=== PATIENT | female | born 1980 | race Caucasian/White ===

== ENCOUNTER 2020-07-10 22:31 | Inpatient (IN) | payer BC, SELFPAY ==
--- NOTE | 2020-07-10 22:31 | LDADM ---
This patient, Smita Breaux, was admitted to Labor/Delivery/Recovery 103 on 07/10/20 at 22:31. Plans for labor, pain management and were discussed with patient. Patient/family oriented to hospital policies and general routines including ID bracelet, bed and alarms, visiting hours, pain management, procedures, bathroom and other care routines, personal items, smoking policy, room service/diet and guest tray routines, infant security routines, and visiting hours. Patient/Family are encouraged to report perceived risks to care and to ask questions if they do not understand what they are told or what they should do. See OBIX for further documentation.
[2020-07-10 23:01] VITALS: BP 132/85; PULSE 93
[2020-07-10 23:16] VITALS: BP 132/84; PULSE 103
[2020-07-10 23:19] LABS: Basophils Absolute Auto 0.1 K/mm3 (0.0-0.1); Basophils Percent Auto 0.4 % (0.2-1.2); Eosinophils Absolute Auto 0.3 K/mm3 (0-0.3); Eosinophils Percent Auto 2.3 % (0-4.4); Hematocrit 31.5 % (37.0-47.0); Hemoglobin 10.3 g/dL (12.0-15.0); Immature Granulocyte Absolute 0.11 K/mm3 (0.00-0.031); Immature Granulocyte Percent A 0.8 % (0-0.5); Lymphocytes Absolute Auto 2.52 K/mm3 (0.9-3.2); Lymphocytes Percent Auto 17.7 % (18.3-44.2); Mean Corpuscular HGB Conc 32.7 g/dl (32-36); Mean Corpuscular Hemoglobin 27.8 pg (26-34); Mean Corpuscular Volume 84.9 fl (80-100); Mean Platelet Volume 10.3 fl (7.4-10.4); Monocytes Absolute Auto 0.9 K/mm3 (0.1-0.6); Neutrophils Absolute Auto 10.4 K/mm3 (1.3-6.7); Neutrophils Percent Auto 72.8 % (45.5-73.1); Platelet Count Result 334 k/mm3 (150-375); Red Blood Count 3.71 M/mm3 (4.2-5.4); Red Cell Distribution Width 14.5 % (11.5-14.5); White Blood Count 14.2 K/mm3 (4.5-10.0)
[2020-07-10] MEDS: LACTATED RINGERS 1,000 ML 999 ML IV CONT (23:21)
[2020-07-10 23:31] VITALS: BP 127/85; PULSE 95
[2020-07-10 23:46] VITALS: BP 136/89; PULSE 95
[2020-07-11] VITALS (53 sets, daily range): BP systolic 83–156; BP diastolic 12–95; PULSE 67–124; RESP 16–20; TEMP 36.2–37.3; O2SAT 97–100; BMI 37.1
[2020-07-11] MEDS: LACTATED RINGERS 1,000 ML 125 ML IV CONT (00:22)
--- NOTE | 2020-07-11 00:24 | WPDANESEPPF ---
Anes - Initial Pre Proc Eval Procedure: labor epidural Date/Time: 07/11/20 00:24 Surgeon: Larry Guy MD Pre Op Diagnosis: labor pain Pre Op Diagnosis: SROM Patient Data Age: 40 Gender: F Height: Weight: Last Vital Signs Pulse 124 H 07/11/20 00:21 BP 133/79 07/11/20 00:21 Pulse Ox 99 07/11/20 00:23 Allergies Allergy/AdvReac Type Severity Reaction Status Date / Time prednisone Allergy Unknown Dyspnea / Verified 07/04/20 13:23 SOB Home Medications Medication Instructions Recorded Confirmed Type PNV cmb#95-ferrous fumarate-FA 1 tablet PO DAILY 07/04/20 07/04/20 History [] Laboratory Tests 07/10/20 07/10/20 23:11 23:11 WBC 14.2 K/mm3 H K/mm3 (4.5-10.0) RBC 3.71 M/mm3 L M/mm3 (4.2-5.4) Hgb 10.3 g/dL L g/dL (12.0-15.0) Hct 31.5 % L % (37.0-47.0) MCV 84.9 fl fl (80-100) MCH 27.8 pg pg (26-34) MCHC 32.7 g/dl g/dl (32-36) RDW 14.5 % % (11.5-14.5) Plt Count 334 k/mm3 k/mm3 (150-375) MPV 10.3 fl fl (7.4-10.4) Immature Gran % (Auto) 0.8 % H % (0-0.5) Neut % (Auto) 72.8 % % (45.5-73.1) Lymph % (Auto) 17.7 % L % (18.3-44.2) [place] % (Auto) 6.0 % % (2.6-8.5) Eos % (Auto) 2.3 % % (0-4.4) Baso % (Auto) 0.4 % % (0.2-1.2) Lymph # (Auto) 2.52 K/mm3 K/mm3 (0.9-3.2) [place] # (Auto) 0.9 K/mm3 H K/mm3 (0.1-0.6) Eos # (Auto) 0.3 K/mm3 K/mm3 (0-0.3) Baso # (Auto) 0.1 K/mm3 K/mm3 (0.0-0.1) Abs Immat Gran (auto) 0.11 K/mm3 H K/mm3 (0.00-0.031) Absolute Neuts (auto) 10.4 K/mm3 H K/mm3 (1.3-6.7) Absolute Nucleated RBC 0.0 K/mm3 K/mm3 (0.0-0.012) Nucleated RBC % 0.0 % % (0.0-0.2) RPR Pending Patient hx anesthesia problems: none Family hx anesthesia problems: none PMFSH Family History Family History Sibling Diabetes mellitus Mother Patient's mother is in good health Family history of malignant neoplasm of breast Father Family history of cardiovascular disease Grandparent Family history of malignant neoplasm, Onset Age: 73 Other Family history of chronic obstructive pulmonary disease Social History Social History Smoking status: Never smoker Alcohol intake: current Substance use: never Gender identity (if verbalized by the patient): Female Spiritual care concerns: No Anes - Eval Final PreProcedure Day of Procedure 07/11/20 00:24 Patient weight: overweight Heart: regular rate and rhythm Lungs: clear to auscultation and normal air movement Airway: Mallampati scale class II Neurological: alert and oriented ASA classification: II Anesthetic plan: proceed Anesthesia type and monitoring: regional epidural and standard monitoring Informed Consent: The patient's anesthetic plan and its attendant risks and benefits were discussed with the patient/family/POA. Questions were solicited and answers provided to the satisfaction of the patient/family/POA.
--- NOTE | 2020-07-11 00:24 | WPDOBADMIT ---
Obstetrics - Admit Note Admission Note: record reviewed. Additions to the history and/or subsequent changes in the physical findings follow. 40 y/o at 39 weeks here after a gush of clear fluid at 2215 last evening. Contractions worsened subsequently. GBS neg. Has been admitted to the hospital and is now comfortable with an epidural. AVSS NST reactive TOCO: Contractions every 2-4 min ABD soft, nontender, gravid, vertex EXT nontender Cervix 5-6/90/-1. AROM forebag with minimal clear fluid. Vertex. A: IUP at term with SROM. P: Anticipate .
[2020-07-11] MEDS: CALCIUM CARBONATE (TUMS) 500 MG (200 MG ELEMENTAL) PO (01:29)
[2020-07-11] MEDS: OXYTOCIN 30 UNITS/NS 500 ML 30 UNITS/500 ML BAG 999 UNITS IV CONT (02:11)
--- NOTE | 2020-07-11 02:27 | PM.OBPRVD ---
OB - Delivery Note Procedure Delivery date: 07/11/20 Procedure: Induction method: none Delivery monitor: external FHT and external uterine Route of delivery: Laceration description: Perineal - 2nd Degree Delivery repair: vicryl (3-0) Specimen: Yes (cord blood) Estimated blood loss (mL): 480 Anesthesia type: Epidural Disposition: PACU Complications: None Narrative: 40 y/o at 39 weeks gestation who presented to the hospital with complaint of gush of clear fluid. SROM was diagnosed. She received an epidural for pain control. AROM of forebag demonstrated clear fluid. Her labor progressed and her cervix dilated completely. She pushed with good effort and delivered the infant's head to the perineum, followed by the body. The nose and mouth were bulb suctioned. After a delay, the cord was clamped and cut. The infant was handed off the field. Cord blood was collected. The placenta delivered spontaneously and was grossly normal in appearance. The usual 3 vessel cord was noted. A second degree midline perineal laceration was sustained. This was reapproximated using 3 0 Vicryl in the usual layered fashion. Excellent hemostasis resulted as did excellent reapproximation of the normal anatomy. Needle and instrument counts were correct. The patient was taken to recovery room in stable condition. The went to the nursery in stable condition. I was present and scrubbed for the entire delivery. [place] Baby Date of : 07/11/20 Time of : 02:05 Weeks of gestation at delivery: 39 gender: Female Weight (pounds): 7 Weight (ounces): 10 presentation: vertex position: Left Occiput Anterior Placenta delivery description: Spontaneous and Normal Configuration cord vessel description: 3 Vessels and Nuchal Cord score one minute: 8 score five minutes: 9
--- NOTE | 2020-07-11 02:30 | PM.OBDSVD ---
DS: Admitting Diagnosis Admitting Diagnosis Admitting Diagnosis: IUP at 39 weeks SROM DS: Discharge Diagnosis Discharge Diagnosis (1) (normal spontaneous vaginal delivery): Code(s): O80 - Encounter for full-term uncomplicated delivery Status: Acute OB - DS: Summary OB Procedures : None OB Procedures Intrapartum: Spontaneous Vag Delivery OB Procedures: : None DS: Data Data Completed and Pending Labs on day of discharge: Labs from last 24 hours 07/10/20 07/10/20 07/10/20 23:11 23:11 23:11 WBC 14.2 H RBC 3.71 L Hgb 10.3 L Hct 31.5 L MCV 84.9 MCH 27.8 MCHC 32.7 RDW 14.5 Plt Count 334 MPV 10.3 Immature Gran % (Auto) 0.8 H Neut % (Auto) 72.8 Lymph % (Auto) 17.7 L [place] % (Auto) 6.0 Eos % (Auto) 2.3 Baso % (Auto) 0.4 Lymph # (Auto) 2.52 [place] # (Auto) 0.9 H Eos # (Auto) 0.3 Baso # (Auto) 0.1 Abs Immat Gran (auto) 0.11 H Absolute Neuts (auto) 10.4 H Absolute Nucleated RBC 0.0 Nucleated RBC % 0.0 RPR Pending Blood Type O Positive Antibody Screen Negative Discharge Plan Discharge Attending physician on discharge: Larry uGy Consulting providers: López Ott Discharging Clinician: Larry Guy Patient Disposition: Home, Self-Care Activity: may shower, no straining, may drive after 2 weeks and pelvic rest Diet: regular Wound Care Instructions: follow printed instructions Discharge Instructions: Education: Mom and Baby Guide Given to: Patient Follow-Up: Call your delivering provider's office for an appointment to be seen in: 6 weeks Mom [facility] baby [facility] follow-up appointment. Appointment Date/Time: Will make when infant is Discharged home. Call [phone] if you are unable to keep your appointment time. BREAST CARE: * Wear a snug supportive bra. * For engorgement discomfort: Bottle Feeding: * May apply ice packs EPISIOTOMY/PERINEAL CARE: * Until bleeding stops, use your ulna bottle after urinating * Change your pad frequently throughout the day * You may take sitz baths several times a day (fill your bathtub with warm water and soak for 20 minutes.) Do NOT bathe in the water * No tub baths until seen by your physician - You may shower ACTIVITY: * Rest as much as possible. * Do not exercise or lift anything heavier than your baby (such as laundry or other children.) * Avoid stairs or driving as much as possible. * Do not put anything into the vagina. No douching, tampons, or sexual activity until seen by physician. NOTIFY PHYSICIAN IF YOU HAVE ANY QUESTIONS OR IF ANY OF THE FOLLOWING SYMPTOMS OCCUR: * If your episiotomy or incision becomes red, swollen, or more painful than what you have experienced in the hospital. * If your vaginal bleeding becomes foul smelling. * If your vaginal bleeding becomes more heavy than a period or if your bleeding changes from pink to bright red. However, you may pass an occasional walnut-sized clot once or twice for the first week . * If you experience a sharp, shooting pain in you calves. * If you discover a hard, reddened area on your breast or if you experience flu-like symptoms. DIET: * Eat regular, well-balanced meals. * Drink plenty of fluids daily. If , drink to thirst. Per Dr. Kathy Moralez Call or return if temperature above 100.4? F, increased abdominal pain, increased vaginal bleeding or any new problems. Follow-up/Referrals: Larry Guy MD [Physician] - (6 weeks) Discharge Medications: New ibuprofen 600 mg tablet 600 mg PO Q6H PRN (Reason: cramps) Qty: 30 RF: 0 ferrous sulfate 325 mg (65 mg iron) tablet 325 mg PO DAILY Qty: 30 RF: 0 Continued PNV cmb#95-ferrous fumarate-FA [] 28 mg iron- 800 mcg Tablet 1 tablet PO DAILY RF: 0 Date of admissio
[2020-07-11] MEDS: OXYTOCIN 30 UNITS/NS 500 ML 30 UNITS/500 ML BAG 125 UNITS IV CONT (02:45)
[2020-07-11] MEDS: BENZOCAINE 20% AER SPR (*SP) 56 GM CAN 1 SPRAY TOPICAL (04:14)
[2020-07-11] MEDS: WITCH HAZEL 40 PADS 1 PAD TOPICAL (04:14)
--- NOTE | 2020-07-11 04:46 | OBPPTRN ---
Patient transferred to post room #280 via ( wheelchair ). Support person present. Oriented to unit, room, information board, rooming in, admission packet and security measures. Patient verbalizes understanding.
[2020-07-11] MEDS: IBUPROFEN 600 MG TABLET PO ×3 (04:59→22:43)
[2020-07-11] MEDS: MULTIVIT/MIN/PREN/FOL AC/IRON TABLET 1 TAB PO (07:40)
[2020-07-11] MEDS: LANOLIN (LANSINOH) 7.5 GM CREAM 1 APPLIC TOPICAL (07:40)
[2020-07-11] MEDS: DOCUSATE SODIUM 100 MG CAPSULE PO ×2 (07:40→22:43)
[2020-07-11] MEDS: ACETAMINOPHEN 325 MG TABLET 650 MG PO ×2 (17:39→22:43)
[2020-07-11] MEDS: SIMETHICONE 80 MG TAB.CHEW PO ×2 (17:40→22:43)
--- NOTE | 2020-07-11 19:00 | PC.NURSE ---
Patient to view the discharge video Mother & Baby Care, The First Two Weeks online. Patient was given the opportunity and encouraged to ask questions. Patient verbalized understanding of information shared and has been given the mother/baby guide for home reference.
[2020-07-12 04:43] LABS: Hematocrit 23.7 % (37.0-47.0); Hemoglobin 7.8 g/dL (12.0-15.0)
[2020-07-12 07:00] VITALS: BP 121/70; PULSE 94; RESP 20; TEMP 36.6
[2020-07-12] MEDS: IBUPROFEN 600 MG TABLET PO ×3 (08:06→23:25)
[2020-07-12] MEDS: POLYSACCHARIDE IRON COMPLEX 150 MG CAPSULE PO ×2 (08:06→16:26)
[2020-07-12] MEDS: DOCUSATE SODIUM 100 MG CAPSULE PO ×2 (08:06→16:25)
--- NOTE | 2020-07-12 11:12 | PM.OBPNVD ---
OB - PN: Subj Subjective Date/time seen: 07/12/20 11:12 Narrative: Pain OK. She would like to stay until tomorrow. OB - PN: Obj Data Labs CBC & Chem 7: 07/12/20 04:09 Labs: Laboratory Results - last 24 hr 07/12/20 04:09 Hgb 7.8 L Hct 23.7 L OB - PN A/P Plan Comments: A: PPD#1, doing well. P: Routine care. Exam Psych: Other: AVSS ABD soft, nontender, fundus firm EXT nontender
[2020-07-12] MEDS: TETANUS,DIPHTHERIA,AC PERTUSSIS ADULT (0.5 ML) BOOSTRIX IM (12:16)
[2020-07-12 18:52] VITALS: BP 114/61; PULSE 92; RESP 16; TEMP 36.2; O2SAT 100
[2020-07-12] MEDS: WITCH HAZEL 40 PADS 1 PAD TOPICAL (23:33)
--- NOTE | 2020-07-13 05:47 | PM.OBPNVD ---
OB - PN: Subj Subjective Date/time seen: 07/13/20 05:47 Patient comments: no complaints and pain well controlled baby status: doing well and nursing well OB - PN: Obj Data Labs CBC & Chem 7: 07/12/20 04:09 OB - PN A/P Plan day: 2 Plan: routine care, discharge home and follow up 6 weeks Time Spent With Patient Time: Total time spent is greater than 50% in coordination of care (as documented) at patient's floor/unit and/or counseling patient: Time with patient: less than 15 minutes Review of Systems Review of Systems: All systems reviewed & are unremarkable except as noted in HPI and below Exam Const: General: no acute distress Eyes: General: appearance normal, both eyes and all related structures Neck: Neck: supple and no JVD Thyroid: thyroid normal Resp: Effort & Inspection: normal respiratory effort Auscultation: clear to auscultation bilaterally Cardio: Rate: regular rate Rhythm: regular rhythm GI: Inspection: non-distended GI Palp: Yes Soft to palpation, No Tenderness to palpation present (GI) and No Guarding due to palpation present (GI) Auscultation: normal bowel sounds : General: Yes bladder normal to palpation External Female Exam: normal external appearance Speculum Exam - Vagina: normal vaginal discharge and No vaginal bleeding Speculum Exam - Cervix: nontender Bimanual exam- vagina & uterus: bladder normal to palpation and No Cervical tenderness present OB/external & speculum: No vaginal bleeding Skin: General skin exam: no rashes or lesions noted Extrem: General: normal to inspection and no edema Psych: Mental Status: mental status grossly normal Affect: normal affect
[2020-07-13 07:19] LABS: Rapid Plasma Reagin Non-Reactive (NonReactive)
[2020-07-13 07:45] VITALS: BP 123/77; PULSE 84; RESP 18; TEMP 36.4; O2SAT 97
[2020-07-13] MEDS: POLYSACCHARIDE IRON COMPLEX 150 MG CAPSULE PO ×2 (07:56→15:47)
[2020-07-13] MEDS: DOCUSATE SODIUM 100 MG CAPSULE PO ×2 (07:57→15:47)
[2020-07-13] MEDS: IBUPROFEN 600 MG TABLET PO ×2 (07:57→15:48)
[2020-07-15 09:07] VITALS: BP 127/87; PULSE 91; RESP 16; TEMP 36.6; O2SAT 99
== END 2020-07-13 19:00 | disposition home or self-care (01) | DRG 807 ==
LOC: ANHLDR 07-11 02:31 → ANHOB2 07-11 04:52
PROVIDERS: Admitting Provider Obstetrics & Gynecology; Visit Provider Obstetrics & Gynecology
DX: O69.81X0 Labor and delivery complicated by cord around neck, without compression, not applicable or unspecified (principal); Z37.0 Single live birth; Z3A.39 39 weeks gestation of pregnancy; O70.1 Second degree perineal laceration during delivery; O36.8330 Maternal care for abnormalities of the fetal heart rate or rhythm, third trimester, not applicable or unspecified; O99.214 Obesity complicating childbirth; E66.9 Obesity, unspecified
CPT/HCPCS: 36415; 85014; 85018; 85025; 86592; 86850; 86900; 86901; 90715; A9270; J2590; J7120